=== PATIENT | male | born 1960 | race Hispanic/Latino ===

== ENCOUNTER → 2024-07-08 | Day surgery (SDC) | payer OTHER ==
[~2024-07-08] MED LIST: ALLOPURINOL300 MG PO; AMLODIPINE BESY10 MG PO; FENTANYL CITRATE/PF 100MCG/2 ML INJ ONE; GLUCAGON FOR INJ 1 MG VIAL ONE; HYOSCYAMINE SULFATE 0.5 MG/ML INJ ONE; METFORMIN HCL500 MG PO; MIDAZOLAM HCL 2 MG/2 ML VIAL ONE; PROPOFOL IV EMULSION 10 MG/ML 20 ML VIAL ONE
[2024-07-08] MEDS: LACTATED RINGER'S 1,000 ML ONE (09:28)
[2024-07-08 13:00] VITALS: BP 102/72; PULSE 56; RESP 16; TEMP 97.5; O2SAT 96
== END | disposition home or self-care (01) ==
LOC: OR 07:51
PROVIDERS: ATTEND Internal Medicine Gastroenterology
DX: Z12.11 Encounter for screening for malignant neoplasm of colon (principal); D12.2 Benign neoplasm of ascending colon; D12.3 Benign neoplasm of transverse colon; D12.4 Benign neoplasm of descending colon; K62.1 Rectal polyp; K64.8 Other hemorrhoids; M10.9 Gout, unspecified; E11.9 Type 2 diabetes mellitus without complications; E78.5 Hyperlipidemia, unspecified; Z01.810 Encounter for preprocedural cardiovascular examination; Z79.84 Long term (current) use of oral hypoglycemic drugs; Z79.899 Other long term (current) drug therapy
CPT/HCPCS: 45385; 93005; J1610; J1980; J2250; J2704; J3010; J7121; 45378